=== PATIENT | female | born 1970 | race Asian ===

== ENCOUNTER 2020-08-06 19:32 | Emergency (ER) | payer MEDICAID ==
[~2020-08-06] VITALS: Ht 162.6 cm; Wt 72.6 kg
[~2020-08-06 19:32] MED LIST: FERR27TA2 PO; MULT-1018 PO
[2020-08-06 20:13] VITALS: BP 163/65
[2020-08-06 23:22] LABS: Hematocrit 23.6 % (36.0-46.0); Mean Corpuscular Hemoglobin 17.9 pg (28.0-32.0); Mean Corpuscular Volume 61.8 fL (80.0-100.0); Platelet Count (auto) 405 10^3/uL (140-450); Red Blood Cells 3.83 10^6/uL (4.0-5.20); Red Cell Distribution Width 18.5 % (11.8-14.3)
[2020-08-06 23:30] LABS: Hemoglobin 6.8 g/dL (12.2-16.2); White Blood Cell 30.2 10^3/uL (4.4-10.8)
[2020-08-06 23:31] LABS: Basophils % (manual) 0 (0.0-2.0); Blast Cells 0; Metamyelocytes % 0; Myelocytes % 0; Promyelocytes % 0; Reactive Lymphocytes 0
[2020-08-06 23:34] LABS: INR 1.06 (0.9-1.15)
[2020-08-06 23:40] LABS: Albumin 3.4 g/dL (3.4-5.0); BUN/Creatinine Ratio 12.9; Calcium 8.5 mg/dL (8.5-10.1); Potassium 3.2 mmol/L (3.5-5.1)
[2020-08-06 23:43] LABS: Bilirubin, Total 0.4 mg/dL (0.2-1.0); Total Protein 8.1 g/dL (6.4-8.2)
[2020-08-06 23:55] LABS: Band Neutrophils % (manual) 1; Eosinophils % (manual) 1 (0-7); Lymphocytes % (manual) 15 (10.0-50.0); Monocytes % (manual) 1 (0-12)
== END 2020-08-07 02:46 | disposition left against medical advice (07) ==
LOC: ER 19:33
DX: D64.9 Anemia, unspecified (principal); N93.9 Abnormal uterine and vaginal bleeding, unspecified; J45.909 Unspecified asthma, uncomplicated
CPT/HCPCS: 36415; 76856; 80053; 85007; 85027; 85610; 85730; 86850; 86900; 86901

== ENCOUNTER 2020-08-07 10:33 | Emergency (ER) | payer MEDICAID ==
[~2020-08-07] VITALS: Ht 162.6 cm; Wt 72.6 kg
[2020-08-07 11:15] VITALS: BP 159/73
[2020-08-07 13:45] LABS: Basophils # (auto) 0.1 10 ^3/uL (0-0.2); Eosinophils # (auto) 0.1 10 ^3/uL (0-0.8); Eosinophils % (auto) 0.6 % (0.0-7.0); Lymphocytes # (auto) 1.7 10 ^3/uL (0.4-5.4); Nucleated Red Blood Cells % 0.1 %
[2020-08-07 13:46] LABS: Basophils % (auto) 0.5 % (0.0-2.0); Hematocrit 24.1 % (36.0-46.0); Lymphocytes % (auto) 8.2 % (10.0-50.0); Mean Corpuscular Hemoglobin 17.7 pg (28.0-32.0); Mean Corpuscular Hgb Conc. 28.9 g/dL (32.0-36.0); Mean Corpuscular Volume 61.4 fL (80.0-100.0); Monocytes # (auto) 1.4 10 ^3/uL (0-1.3); Monocytes % (auto) 6.8 % (0.0-12.0); Neutrophils % (auto) 83.9 % (37.0-80.0); Platelet Count (auto) 512 10^3/uL (140-450); Red Blood Cells 3.93 10^6/uL (4.0-5.20); Red Cell Distribution Width 18.3 % (11.8-14.3); White Blood Cell 20.2 10^3/uL (4.4-10.8)
[2020-08-07 14:42] LABS: Calcium 8.7 mg/dL (8.5-10.1); Potassium 3.1 mmol/L (3.5-5.1)
[2020-08-07 14:46] LABS: BUN/Creatinine Ratio 11.9; Bilirubin, Total 0.4 mg/dL (0.2-1.0); Total Protein 7.8 g/dL (6.4-8.2)
== END 2020-08-07 20:42 | disposition left against medical advice (07) ==
LOC: ER 10:33
DX: D64.9 Anemia, unspecified (principal); N92.0 Excessive and frequent menstruation with regular cycle; J45.909 Unspecified asthma, uncomplicated; Z98.51 Tubal ligation status; Z79.899 Other long term (current) drug therapy
CPT/HCPCS: 36415; 80053; 85025; 86850; 86900; 86901; 86920

== ENCOUNTER 2021-06-09 18:45 | Inpatient (IN) | payer MEDICAID ==
[~2021-06-09] VITALS: Ht 162.6 cm; Wt 79.2 kg
[2021-06-09 20:31] LABS: Eosinophils # (auto) 0.3 10 ^3/uL (0-0.8); Monocytes # (auto) 0.8 10 ^3/uL (0-1.3); Nucleated Red Blood Cells % 0.1 %
[2021-06-09 20:34] LABS: Basophils # (auto) 0.1 10 ^3/uL (0-0.2); Basophils % (auto) 1.6 % (0.0-2.0); Eosinophils % (auto) 3.4 % (0.0-7.0); Hematocrit 21.2 % (36.0-46.0); Lymphocytes # (auto) 2.1 10 ^3/uL (0.4-5.4); Lymphocytes % (auto) 23.5 % (10.0-50.0); Mean Corpuscular Hemoglobin 13.9 pg (28.0-32.0); Mean Corpuscular Hgb Conc. 27.2 g/dL (32.0-36.0); Mean Corpuscular Volume 51.2 fL (80.0-100.0); Monocytes % (auto) 8.9 % (0.0-12.0); Neutrophils # (auto) 5.6 10 ^3/uL (1.6-8.6); Neutrophils % (auto) 62.6 % (37.0-80.0); Red Blood Cells 4.14 10^6/uL (4.0-5.20)
[2021-06-09 20:44] LABS: Hemoglobin 5.8 g/dL (12.2-16.2); Red Cell Distribution Width 20.1 % (11.8-14.3)
[2021-06-09 20:47] LABS: Albumin 3.7 g/dL (3.4-5.0); Calcium 8.7 mg/dL (8.5-10.1); Potassium 3.7 mmol/L (3.5-5.1)
[2021-06-09 20:51] LABS: Bilirubin, Total 0.4 mg/dL (0.2-1.0); Total Protein 7.8 g/dL (6.4-8.2)
[2021-06-09] MEDS ORDERED: ONDANSETRON HCL 4 MG/2 ML VIAL IV PRN (22:45)
[2021-06-09] MEDS ORDERED: HYDROcodone-ACET 5/325MG TAB PO PRN (22:45)
[2021-06-09] MEDS ORDERED: ACETAMINOPHEN 325 MG TAB PO PRN (22:45)
[2021-06-09] MEDS ORDERED: DOCUSATE SOD 100 MG CAP PO PRN (22:45)
[2021-06-09] MEDS ORDERED: MORPHINE SULFATE 4 MG/ML SYR/VIAL IV PRN (22:45)
[2021-06-09] MEDS ORDERED: MORPHINE SULFATE INJECTION 2 MG/ML SYRG IV PRN (22:45)
[2021-06-09] MEDS ORDERED: NITROGLYCERIN 0.4 MG SL TAB SL PRN (22:45)
[2021-06-10] MEDS: SODIUM CHLOR 0.9% PF (SALINE LOCK) 10ML VIAL/SYR IV SCH ×3 (05:44→22:00)
[2021-06-10 07:48] LABS: Basophils # (auto) 0.1 10 ^3/uL (0-0.2); Basophils % (auto) 1.1 % (0.0-2.0); Eosinophils # (auto) 0.3 10 ^3/uL (0-0.8); Eosinophils % (auto) 2.8 % (0.0-7.0); Hematocrit 25.2 % (36.0-46.0); Lymphocytes # (auto) 2.7 10 ^3/uL (0.4-5.4); Lymphocytes % (auto) 25.1 % (10.0-50.0); Mean Corpuscular Hemoglobin 15.7 pg (28.0-32.0); Mean Corpuscular Hgb Conc. 27.6 g/dL (32.0-36.0); Mean Corpuscular Volume 56.7 fL (80.0-100.0); Monocytes # (auto) 0.8 10 ^3/uL (0-1.3); Monocytes % (auto) 7.6 % (0.0-12.0); Neutrophils # (auto) 6.9 10 ^3/uL (1.6-8.6); Neutrophils % (auto) 63.4 % (37.0-80.0); Nucleated Red Blood Cells % 0.2 %; Red Blood Cells 4.45 10^6/uL (4.0-5.20)
[2021-06-10 07:49] LABS: Red Cell Distribution Width 20.9 % (11.8-14.3)
[2021-06-10 07:55] LABS: Albumin 3.4 g/dL (3.4-5.0); Calcium 8.3 mg/dL (8.5-10.1); Potassium 3.4 mmol/L (3.5-5.1)
[2021-06-10 08:02] LABS: BUN/Creatinine Ratio 13.6; Bilirubin, Total 1.2 mg/dL (0.2-1.0); Total Protein 7.2 g/dL (6.4-8.2)
[2021-06-10] MEDS: ZINC SULFATE 220mg CAP or TAB PO SCH (10:30)
[2021-06-10] MEDS: MULTIPLE VITAMIN TAB PO SCH (10:30)
[2021-06-10] MEDS: FAMOTIDINE (10MG/ML) 2ML VL IV SCH (10:30)
[2021-06-10] MEDS: ASCORBIC ACID 500 MG TAB PO SCH ×2 (10:31→22:00)
[2021-06-10 15:10] VITALS: BP 151/79
[2021-06-10 21:30] VITALS: BP 147/77
[2021-06-10] MEDS: SODIUM FERR GLUC 62.5MG/5ML 125 MG in SODIUM CHL 0.9% 100 ML IV SCH (21:38)
[2021-06-11 05:00] VITALS: BP 162/85
[2021-06-11] MEDS: SODIUM CHLOR 0.9% PF (SALINE LOCK) 10ML VIAL/SYR IV SCH ×3 (06:00→21:24)
[2021-06-11 06:30] LABS: Hematocrit 26.5 % (36.0-46.0)
[2021-06-11 06:31] LABS: Hemoglobin 7.2 g/dL (12.2-16.2)
[2021-06-11 06:37] LABS: INR 1.08 (0.9-1.15); Partial Thromboplastin Time 28.1 sec (23.6-33.0)
[2021-06-11 09:00] VITALS: BP 167/79
[2021-06-11] MEDS: FAMOTIDINE (10MG/ML) 2ML VL IV SCH (10:45)
[2021-06-11] MEDS: MULTIPLE VITAMIN TAB PO SCH (10:45)
[2021-06-11] MEDS: ASCORBIC ACID 500 MG TAB PO SCH ×2 (10:45→21:24)
[2021-06-11] MEDS: ZINC SULFATE 220mg CAP or TAB PO SCH (10:45)
[2021-06-11 13:00] VITALS: BP 165/70
[2021-06-11] MEDS ORDERED: cloNIDine HCL 0.1 MG TAB PO PRN (15:06)
[2021-06-11 17:00] VITALS: BP 155/84
[2021-06-11] MEDS ORDERED: SODIUM FERR GLUC 62.5MG/5ML 125 MG in SODIUM CHL 0.9% 100 ML IV SCH (18:30)
[2021-06-11] MEDS: SODIUM FERR GLUC 62.5MG/5ML 125 MG in SODIUM CHL 0.9% 100 ML IV SCH (20:00)
== END 2021-06-11 23:00 | disposition left against medical advice (07) | DRG 532 ==
LOC: ER 18:45 → OVERFLOW 22:44 → WEST WING 06-10 17:01
PROVIDERS: ADMIT Nurse Practitioner Family; ATTEND Hospitalist
DX: N93.9 Abnormal uterine and vaginal bleeding, unspecified (principal); D62 Acute posthemorrhagic anemia; F17.210 Nicotine dependence, cigarettes, uncomplicated; N92.0 Excessive and frequent menstruation with regular cycle; J45.909 Unspecified asthma, uncomplicated; Z20.822 Contact with and (suspected) exposure to COVID-19; Z53.29 Procedure and treatment not carried out because of patient's decision for other reasons; Z82.3 Family history of stroke
CPT/HCPCS: 36415; 76856; 80053; 85014; 85018; 85025; 85610; 85730; 86850; 86900; 86901; 86920; 87426; 96365; 96366; 96375; G0378; J1756; J3490

== ENCOUNTER 2024-01-31 19:12 | Emergency (ER) | payer MEDICAID ==
[~2024-01-31] VITALS: Ht 162.6 cm; Wt 66.9 kg
[~2024-01-31 19:12] MED LIST changes: +FERR1TAB31 PO; -FERR27TA2 PO
[2024-01-31] MEDS ORDERED: LABETALOL HCL 5 MG/ML 4ML SYRINGE IV ONE (19:45)
[2024-01-31 20:15] LABS: Basophils # (auto) 0.1 10 ^3/uL (0-0.2); Eosinophils # (auto) 0.2 10 ^3/uL (0-0.8); Monocytes # (auto) 0.8 10 ^3/uL (0-1.3); Neutrophils # (auto) 8.2 10 ^3/uL (1.6-8.6); Nucleated Red Blood Cells % 0.1 %; Red Blood Cells 5.85 10^6/uL (4.0-5.20)
[2024-01-31 20:16] LABS: Basophils % (auto) 0.9 % (0.0-2.0); Eosinophils % (auto) 1.4 % (0.0-7.0); Hematocrit 42.8 % (36.0-46.0); Lymphocytes # (auto) 2.8 10 ^3/uL (0.4-5.4); Lymphocytes % (auto) 23.3 % (10.0-50.0); Mean Corpuscular Hgb Conc. 32.8 g/dL (32.0-36.0); Mean Corpuscular Volume 73.2 fL (80.0-100.0); Monocytes % (auto) 6.6 % (0.0-12.0); Neutrophils % (auto) 67.8 % (37.0-80.0); Red Cell Distribution Width 19.1 % (11.8-14.3); White Blood Cell 12.2 10^3/uL (4.4-10.8)
[2024-01-31 21:27] VITALS: PULSE 63; RESP 17; O2SAT 96
[2024-01-31 21:32] LABS: Anion Gap 9 (5-15); Carbon Dioxide 26 mmol/L (20-30); Chloride 105 mmol/L (98-107); Potassium 2.9 mmol/L (3.5-5.1); Sodium 140 mmol/L (136-145)
[2024-01-31] MEDS: LABETALOL HCL 5 MG/ML ML 20ML VIAL IV ONE (21:37)
[2024-01-31 21:38] LABS: BUN/Creatinine Ratio 16.5 (10.0-20.0); Blood Urea Nitrogen 17 mg/dL (9-23); Glucose 115 mg/dL (74-106)
[2024-01-31 22:08] LABS: Prothrombin Time 10.6 sec (9.3-11.8)
[2024-01-31] MEDS ORDERED: POTASSIUM CHL 20MEQ/100ML 100 ML IV ONE (22:15)
[2024-01-31] MEDS: levETIRAcetam 1000 mg/100ml 100 ML IV ONE (22:24)
[2024-01-31 22:38] VITALS: BP 172/73; PULSE 70; RESP 20; TEMP 98.2; O2SAT 96
== END 2024-01-31 23:04 | disposition short-term general hospital (02) ==
LOC: ER 19:12
DX: I61.4 Nontraumatic intracerebral hemorrhage in cerebellum (principal); R10.2 Pelvic and perineal pain; I16.1 Hypertensive emergency; J45.909 Unspecified asthma, uncomplicated; F17.210 Nicotine dependence, cigarettes, uncomplicated; Z86.2 Personal history of diseases of the blood and blood-forming organs and certain disorders involving the immune mechanism; Z98.890 Other specified postprocedural states; Z79.899 Other long term (current) drug therapy
CPT/HCPCS: 36415; 70450; 71045; 80048; 82962; 84484; 84702; 85025; 85610; 93005; 96365; 96368; 96375; 99291; J1953; J3480; J3490